=== PATIENT | female | born 1950 | race Caucasian/White ===

== ENCOUNTER 2018-11-16 15:17 | Emergency (ER) | payer MEDICARE, OTHER ==
[2018-11-16] MEDS: LORAZEPAM 0.5 MG TAB PO (15:50)
[2018-11-16] MEDS: ACETAMINOPHEN 500 MG TAB PO (15:50)
== END 2018-11-16 17:46 | disposition home or self-care (01) ==
LOC: FTE 15:17
DX: S83.91XA Sprain of unspecified site of right knee, initial encounter (principal); I10 Essential (primary) hypertension; S43.401A Unspecified sprain of right shoulder joint, initial encounter; W01.198A Fall on same level from slipping, tripping and stumbling with subsequent striking against other object, initial encounter; Y92.481 Parking lot as the place of occurrence of the external cause; Z79.82 Long term (current) use of aspirin
CPT/HCPCS: 73030; 73030-RT; 73562; 99284-25